=== PATIENT | female | born 1950 | race Caucasian/White ===

== ENCOUNTER 2018-08-23 11:15 | Outpatient (CLI) | payer MEDICARE, OTHER ==
[2018-08-23 13:03] LABS: Hemoglobin 14.9 g/dL (12.0-16.0); Mean Corpuscular HGB CONC 32.9 g/dL (32.0-36.0); Mean Corpuscular Hemoglobin 30.7 pg (27.0-31.0); Mean Corpuscular Volume 93.5 fL (78.0-98.0); Mean Platelet Volume 6.2 fL (7.4-10.4); Platelet Count 325 thou/uL (130-400); RBC Distribution Width 11.4 % (11.5-14.5); Red Blood Cell (RBC) Count 4.84 mill/uL (4.20-5.40); White Blood Cell (WBC) Count 8.8 thou/uL (4.8-10.8)
[2018-08-23 13:09] LABS: INR-International Normal Ratio 1.2; PTT 32.3 SEC (22.9-36.1)
[2018-08-23 13:27] LABS: Anion Gap 14 mmol/L (10-20); BUN (Urea Nitrogen) 12 mg/dL (9.8-20.1); Calc. Creatinine Clearance 0 mL/min (70-130); Calcium 10.1 mg/dL (7.8-10.44); Carbon Dioxide 25 mmol/L (23-31); Chloride 103 mmol/L (98-107); Estimated GFR-MDRD 70; Glucose 85 mg/dL (80-115); Potassium 4.7 mmol/L (3.5-5.1); Sodium 137 mmol/L (136-145)
== END 2018-08-23 11:16 | disposition home or self-care (01) ==
LOC: LABBT 11:15
PROVIDERS: ATTEND Internal Medicine Cardiovascular Disease
DX: Z01.812 Encounter for preprocedural laboratory examination (principal); I48.91 Unspecified atrial fibrillation
CPT/HCPCS: 80048; 85027; 85610; 85730

== ENCOUNTER 2018-08-24 12:04 | Day surgery (SDC) | payer MEDICARE, OTHER ==
[2018-08-23 11:36] VITALS: BMI 23.8
[2018-08-24] MEDS ORDERED: PROPOFOL 20 ML ONE (13:40)
[2018-08-24] MEDS ORDERED: Lidocaine 1% (PF) 30 ML VIAL ONE (13:40)
[2018-08-24] MEDS ORDERED: Lidocaine 1% PF 5 ML VIAL ONE (14:53)
[2018-08-24] MEDS ORDERED: PROPOFOL 200 MG/20 ML VIAL ONE (14:53)
--- NOTE | 2018-08-27 13:51 | OP ---
DATE OF PROCEDURE: 08/24/2018 PROCEDURE PERFORMED: Cardioversion report. REASON FOR PROCEDURE: Ms. Gilliam is a 67-year-old woman with prior history of recurrent atrial arrhythmias post prior ablations, now she is here with recurrent sustained atrial flutter. She is well anticoagulated here for cardioversion. DESCRIPTION OF PROCEDURE: The patient received propofol by Anesthesia specialist. After adequate level of sedation achieved, a synchronized 100-joule shock promptly converted the patient back to sinus rhythm. CONCLUSION: Successful cardioversion. PLAN: Plan for radiofrequency ablation in the near future. Job ID: [id number]
--- NOTE | 2018-08-27 16:56 | EKG ---
Test Reason : PREOP CARDIOVERSION Blood Pressure : / mmHG Vent. Rate : 110 BPM Atrial Rate : 241 BPM P-R Int : 000 ms QRS Dur : 088 ms QT Int : 342 ms P-R-T Axes : 000 020 012 degrees QTc Int : 462 ms Atrial tachycardia with variable A-V block Nonspecific ST abnormality Abnormal ECG Confirmed by SHEKHAR CARY ([id number]) on 08/27/2018 4:56:42 PM Referred By: [facility] Confirmed By:SHEKHAR CARY
== END 2018-08-24 15:11 | disposition home or self-care (01) ==
LOC: CCL 12:04
PROVIDERS: ATTEND Internal Medicine Cardiovascular Disease
PROC: 5A2204Z Restoration of Cardiac Rhythm, Single (ICD-10-PCS; principal; 2018-08-24)
DX: I48.3 Typical atrial flutter (principal); I48.1 Persistent atrial fibrillation; I44.30 Unspecified atrioventricular block; I10 Essential (primary) hypertension; A69.20 Lyme disease, unspecified; Z88.0 Allergy status to penicillin; Z88.6 Allergy status to analgesic agent; Z88.1 Allergy status to other antibiotic agents; Z88.2 Allergy status to sulfonamides; Z88.8 Allergy status to other drugs, medicaments and biological substances; Z79.01 Long term (current) use of anticoagulants; Z79.899 Other long term (current) drug therapy
CPT/HCPCS: 92960; 93005; 93010; J2001; J2704

== ENCOUNTER 2018-09-03 10:08 | Outpatient (CLI) | payer MEDICARE, OTHER ==
[2018-09-03 11:02] LABS: Hemoglobin 14.5 g/dL (12.0-16.0); Mean Corpuscular HGB CONC 32.6 g/dL (32.0-36.0); Mean Corpuscular Hemoglobin 30.3 pg (27.0-31.0); Mean Corpuscular Volume 93.1 fL (78.0-98.0); Mean Platelet Volume 6.3 fL (7.4-10.4); Platelet Count 303 thou/uL (130-400); RBC Distribution Width 11.3 % (11.5-14.5); Red Blood Cell (RBC) Count 4.79 mill/uL (4.20-5.40); White Blood Cell (WBC) Count 8.5 thou/uL (4.8-10.8)
[2018-09-03 11:09] LABS: INR-International Normal Ratio 1.3; PTT 32.6 SEC (22.9-36.1); Prothrombin Time 15.9 SEC (12.0-14.7)
[2018-09-03 11:26] LABS: Anion Gap 14 mmol/L (10-20); BUN (Urea Nitrogen) 13 mg/dL (9.8-20.1); Calc. Creatinine Clearance 0 mL/min (70-130); Calcium 9.9 mg/dL (7.8-10.44); Carbon Dioxide 22 mmol/L (23-31); Chloride 104 mmol/L (98-107); Estimated GFR-MDRD 80; Glucose 95 mg/dL (80-115); Potassium 4.5 mmol/L (3.5-5.1); Sodium 135 mmol/L (136-145)
== END 2018-09-03 10:09 | disposition home or self-care (01) ==
LOC: LABBT 10:08
PROVIDERS: ATTEND Specialist
DX: Z01.818 Encounter for other preprocedural examination (principal); Z51.81 Encounter for therapeutic drug level monitoring; I48.91 Unspecified atrial fibrillation; Z79.01 Long term (current) use of anticoagulants
CPT/HCPCS: 80048; 85027; 85610; 85730; 93005; 93010

== ENCOUNTER 2018-09-04 08:57 | Observation (INO) | payer MEDICARE, OTHER ==
[2018-09-04] MEDS ORDERED: Isoproterenol 0.2 MG/1 ML AMP ONE (10:06)
[2018-09-04] MEDS ORDERED: Lidocaine 1% (PF) 30 ML VIAL ONE (10:06)
[2018-09-04] MEDS ORDERED: Heparin 10,000 UNITS/1 ML VIAL ONE ×2 (10:06→10:08)
[2018-09-04] MEDS ORDERED: Protamine Sulfate 50 MG/5 ML VIAL ONE (11:47)
[2018-09-04] MEDS ORDERED: Fentanyl 100 MCG/2 ML VIAL ONE (12:11)
[2018-09-04] MEDS ORDERED: Ondansetron PF 4 MG/2 ML Vial ONE (12:57)
--- NOTE | 2018-09-04 14:30 | OP ---
DATE OF PROCEDURE: 09/04/2018 PROCEDURE PERFORMED: Radiofrequency ablation for atrial fibrillation and flutter. DESCRIPTION OF PROCEDURE: The patient came to the EP lab in postabsorptive state. Informed consent was obtained. A time-out was called. The patient was sedated by member of the anesthesia staff. Once the patient was adequately sedated, the right and left femoral regions were prepped and draped in the usual sterile fashion. Using a modified Seldinger technique and with ultrasound-guided access, access was obtained x2 in the right femoral vein, x1 in the left femoral vein, and x1 in the right internal jugular vein. A 20-pole DuoDeca catheter was advanced in the right internal jugular vein and placed distal 10 poles in the coronary sinus and the proximal 10 poles along the Anais terminalis for left atrial pacing and recording. Following this, heparin bolus was given and an intracardiac echocardiogram was advanced from the left femoral vein and placed in the right atrium for intraprocedural monitoring and guidance. Two transseptal punctures were made by exchanging sheaths from the right femoral vein for a LA multipurpose sheath and an SL0 sheath. Through these, a circular mapping catheter was placed as well as a radiofrequency ablation catheter. A 3D electroanatomical map was made utilizing the Carto system demonstrating that the pulmonary veins were isolated, that the posterior wall was mostly isolated with some area near the right inferior vein that required further ablation, and that the left atrial appendage was significantly delayed. Induction attempt for an arrhythmia pacing in the coronary sinus down to 200 milliseconds failed to induce any arrhythmia. However, interestingly at 200 milliseconds, there was 2:1 entry blocked into the left atrial appendage. Pacing in the left atrial appendage, a 300 milliseconds demonstrated exit block from the left atrial appendage. Based on this, radiofrequency ablation was initiated anteriorly near the left atrial appendage. This quickly resulted in left atrial appendage isolation. In addition to this, coronary sinus was isolated and further radiofrequency ablations were delivered in the posterior wall. A total of 11 minutes of radiofrequency were delivered at a power of approximately 40 eli. Care was made to ensure that the lesions were titrated for time in the posterior wall near the esophagus. After this, isoproterenol bolus was given and no evidence of reconnection of the appendage or in the veins was shown. As such, catheters were removed from the left atrium. Pacing in the coronary sinus demonstrated that a prior flutter line appeared to be intact. Therefore, catheters were removed, sheaths were removed, and hemostasis was remained by placement of a Vascade sheath. COMPLICATIONS: None acute. ESTIMATED BLOOD LOSS: Less than 30 mL. CONCLUSIONS: 1. Successful radiofrequency ablation for atrial fibrillation and flutter. 2. Isolation of the left atrial appendage. RECOMMENDATIONS: 1. The patient will need to maintain anticoagulant therapy without missing any dosages. 2. The patient will follow up with Electrophysiology in 6 to 8 weeks. Job ID: [id number]
[2018-09-04 16:55] VITALS: BMI 23.6
[2018-09-04] MEDS ORDERED: Fluticasone Propionate Nasal Spray 16 gm Bottle NASAL PRN (18:19)
[2018-09-04] MEDS: Apixaban 5 MG TAB PO SCH (20:50)
[2018-09-04] MEDS ORDERED: Spironolactone 25 MG TAB PO SCH (21:00)
[2018-09-05 03:40] VITALS: TEMP 98.4
[2018-09-05] MEDS ORDERED: Levothyroxine 175 MCG TAB PO SCH (06:00)
[2018-09-05] MEDS: Apixaban 5 MG TAB PO SCH (08:21)
[2018-09-05 08:43] VITALS: BP 125/67
[2018-09-05] MEDS ORDERED: Ubidecarenone 50 MG CAP PO SCH (09:00)
[2018-09-05] MEDS ORDERED: Cyanocobalamin (Vitamin B-12) 1,000 MCG TAB PO SCH (09:00)
[2018-09-05] MEDS ORDERED: Multivit, Therapeutic 1 TAB PO SCH (09:00)
--- NOTE | 2018-09-05 15:12 | DIS ---
DATE OF ADMISSION: 09/04/2018 DATE OF DISCHARGE: 09/05/2018 This is Liz Hunter NP dictating a report for Shukri Davila MD. FINAL HOSPITAL DISCHARGE DIAGNOSIS: Persistent atypical atrial flutter in spite of 2 previous left atrial ablative procedures. SUMMARY: Magda Gilliam is a 67-year-old female patient, who has a history of persistent atrial fibrillation. She underwent 2 previous left atrial ablative procedures by Dr. Osman. In spite of this, she continued to experience episodes of atypical atrial flutter, which was recommended for further left atrial ablative therapy. This was accomplished by Dr. Jeferson Mendoza and required isolation of the left atrial appendage. Postprocedure, the patient was doing extremely well. She was not experiencing any evidence of fluid overload. She denied any chest discomfort or palpitations, presyncope or syncope. DISCHARGE MEDICATIONS: 1. Eliquis 5 mg p.o. b.i.d. 2. Metoprolol 25 mg daily. 3. Protonix 40 mg b.i.d. 4. Spironolactone 12.5 mg daily. PHYSICAL EXAMINATION: GENERAL: The patient is a well appearing, in no apparent distress. VITAL SIGNS: Blood pressure 125/67, pulse 78, and respirations 16. NECK: Supple without jugular venous distention. RESPIRATORY: Breath sounds are clear to auscultation bilaterally. Respirations are even and unlabored. Equal bilateral excursion. CARDIOVASCULAR: Regular rate and rhythm. S1 and S2. ABDOMEN: Soft, nontender. Bowel sounds normoactive. Hepatojugular reflux negative. EXTREMITIES: No lower extremity edema noted. SKIN: Right and left groin sites were clean and dry. There is no hematoma. DISPOSITION: Home. PROGNOSIS: Good. FOLLOWUP TEST AND APPOINTMENTS: Dr. Shukri Davila in 6 weeks. SPECIAL INSTRUCTIONS: The patient was encouraged to avoid strenuous activity and lifting more than 10 pounds for 7 days. She should notify our office regarding fever, chills, shortness of breath, chest discomfort, difficulty swallowing, or growing hematoma. The patient was cautioned to call our office tomorrow if she experiences progressively worsening shortness of breath. At that time, we would call her in a prescription for some Lasix with supplemental potassium. Job ID: [id number] [facility]
--- NOTE | 2018-09-06 17:56 | EKG ---
Test Reason : POST ABLATION Blood Pressure : / mmHG Vent. Rate : 092 BPM Atrial Rate : 092 BPM P-R Int : 204 ms QRS Dur : 096 ms QT Int : 388 ms P-R-T Axes : 058 047 032 degrees QTc Int : 479 ms Normal sinus rhythm Nonspecific ST abnormality Abnormal ECG When compared with ECG of 03-SEP-2018 10:17, (Unconfirmed) No significant change was found Confirmed by DR. Vanessa BLACKWELL ([id number]) on 09/06/2018 5:56:09 PM Referred By: [facility] Confirmed By:DR. Vanessa BLACKWELL
== END 2018-09-05 10:17 | disposition home or self-care (01) ==
LOC: CCL 08:57 → 2SW 12:00
PROVIDERS: ADMIT Specialist; ATTEND Specialist
PROC: 4A023FZ Measurement of Cardiac Rhythm, Percutaneous Approach (ICD-10-PCS; principal; 2018-09-04)
PROC: 4A0234Z Measurement of Cardiac Electrical Activity, Percutaneous Approach (ICD-10-PCS; 2018-09-04)
PROC: 02583ZZ Destruction of Conduction Mechanism, Percutaneous Approach (ICD-10-PCS; 2018-09-04)
PROC: 02573ZK Destruction of Left Atrial Appendage, Percutaneous Approach (ICD-10-PCS; 2018-09-04)
PROC: 02K83ZZ Map Conduction Mechanism, Percutaneous Approach (ICD-10-PCS; 2018-09-04)
DX: I48.4 Atypical atrial flutter (principal); I48.1 Persistent atrial fibrillation; Z88.0 Allergy status to penicillin; Z88.6 Allergy status to analgesic agent; Z88.2 Allergy status to sulfonamides; Z88.1 Allergy status to other antibiotic agents; Z88.8 Allergy status to other drugs, medicaments and biological substances; Z79.01 Long term (current) use of anticoagulants; Z79.899 Other long term (current) drug therapy
CPT/HCPCS: 76942; 85347 ×2; 93005 ×2; 93609; 93613; 93622; 93623; 93656; 93662; C1731; C1759; C1769; G0378 ×2; 93010; J1644; J2001; J2405; J2720; J3010